=== PATIENT | female | born 1985 | race Caucasian/White ===

== ENCOUNTER 2017-05-21 18:33 | Emergency (ER) | payer OTHER ==
[~2017-05-21] VITALS: Ht 170.2 cm; Wt 72.6 kg
[~2017-05-21 18:33] MED LIST: MEDROLDOSEPACK PO; TRINESSA1 EACH PO
[2017-05-21 18:50] LABS: URINE BILIRUBIN NEGATIVE (Negative); URINE BLOOD NEGATIVE (Negative); URINE COLOR YELLOW; URINE GLUCOSE-RANDOM* NEGATIVE (Negative); URINE KETONES NEGATIVE (Negative); URINE NITRITE NEGATIVE (Negative); URINE PROTEIN (DIPSTICK) NEGATIVE (Negative); URINE SPECIFIC GRAVITY 1.025 (1.005-1.035); URINE UROBILINOGEN 0.2 E.U./dl (0.2-1.0)
[2017-05-21] MEDS ORDERED: NOHOMEMEDICATIONS (19:16)
[2017-05-21 19:24] LABS: CALCIUM 9.3 mg/dL (8.5-10.1); CREATININE 0.7 mg/dL (0.6-1.0); POTASSIUM 3.8 mmol/L (3.5-5.1)
[2017-05-21 19:25] LABS: ABSOLUTE NEUTROPHILS 3.7 thou/uL (1.4-8.2); BASOPHILS 0.9 % (0.0-2.0); EOSINOPHILS 1.2 % (0.0-3.0); HEMATOCRIT 44.4 % (37.0-47.0); LYMPHOCYTES 37.1 % (24.0-44.0); MCH 29.2 pg (26.0-34.0); MCHC 33.7 g/dL (28.0-37.0); MCV 86.5 fL (80.0-100.0); PLATELET COUNT 288 thou/uL (150-400); POLYS 51.8 % (36.0-66.0); RBC 5.13 mil/uL (4.20-5.00); RDW 13.9 % (10.5-14.5); WBC 7.2 thou/uL (4.0-11.0)
[2017-05-21 19:29] LABS: MANUAL DIFF NO
[2017-05-21 19:30] LABS: ALBUMIN 3.6 g/dL (3.4-5.0); TOTAL PROTEIN 7.1 g/dL (6.4-8.2)
[2017-05-21] MEDS ORDERED: PHENERGAN 25 MG25 M1 PO (20:25)
[2017-05-21] MEDS ORDERED: NORFLEX100 MG PO (20:25)
[2017-05-21] MEDS ORDERED: NAPROSYN500 MG PO (20:25)
[2017-05-21 20:41] VITALS: BP 120/73
[2017-05-22 14:13] LABS: CHLAMYDIA TRACHOMATIS-PCR Negative (Negative); NEISSERIA GONORRHEA-PCR Negative (Negative)
== END 2017-05-21 20:41 | disposition home or self-care (01) ==
LOC: ER 18:33
PROVIDERS: Physician Assistant
DX: R10.2 Pelvic and perineal pain (principal); M54.9 Dorsalgia, unspecified; F17.210 Nicotine dependence, cigarettes, uncomplicated

== ENCOUNTER 2017-07-18 18:53 | Emergency (ER) | payer OTHER ==
[~2017-07-18] VITALS: Ht 170.2 cm; Wt 72.6 kg
--- NOTE | ~2017-07-18 | EKG ---
[address] [facility] [place] [address] ELECTROCARDIOGRAM REPORT Name: TRE ARROYO Room #: DEP Raz#: [id number] Admission: 07/18/17 Attend Phys: Discharge: 07/18/17 Date of : 85 Report #: [id number] THIS REPORT FOR: //name// [facility] ED Test Date: 2017-07-18 Test Time: 19:49:32 Pat Name: TRE ARROYO Department: Room: Gender: F Instrument Calibrator: RANDOLPH : 1985 Requested By: Luisa Liao Order Number: [id number] MD: Zeke Plata Measurements Intervals [place] Rate: 61 P: 42 IA: 117 QRS: 61 QRSD: 85 T: 68 QT: 396 QTc: 399 Interpretive Statements Sinus rhythm Borderline short IA interval No previous ECG available for comparison Electronically Signed On 07-19-2017 8:41:08 BLENDING COORDINATOR by Zeke Plata [email or web address] <ELECTRONICALLY SIGNED> By: Zeke Plata MD, [facility] 07/19/17 0841 1949 48 Zeke Plata MD, FACC /EPI
[~2017-07-18 18:53] MED LIST changes: +NAPROSYN500 MG PO; +NOHOMEMEDICATIONS; +NORFLEX100 MG PO; +PHENERGAN 25 MG25 M1 PO
[2017-07-18 19:44] LABS: ABSOLUTE NEUTROPHILS 6.6 thou/uL (1.4-8.2); BASOPHILS 0.6 % (0.0-2.0); EOSINOPHILS 2.1 % (0.0-3.0); HEMATOCRIT 43.7 % (37.0-47.0); HEMOGLOBIN 14.5 gm/dL (12.0-15.0); LYMPHOCYTES 30.6 % (24.0-44.0); MCH 29.4 pg (26.0-34.0); MCHC 33.2 g/dL (28.0-37.0); MCV 88.5 fL (80.0-100.0); MONOCYTES 9.4 % (1.0-8.0); PLATELET COUNT 304 thou/uL (150-400); POLYS 57.3 % (36.0-66.0); RBC 4.94 mil/uL (4.20-5.00); RDW 13.9 % (10.5-14.5); WBC 11.5 thou/uL (4.0-11.0)
[2017-07-18 19:52] LABS: CALCIUM 8.7 mg/dL (8.5-10.1); CREATININE 0.6 mg/dL (0.6-1.0); POTASSIUM 4.3 mmol/L (3.5-5.1)
[2017-07-18 19:58] LABS: ALBUMIN 3.5 g/dL (3.4-5.0); TOTAL BILIRUBIN 1.1 mg/dL (<0.1-1.0); TOTAL PROTEIN 6.7 g/dL (6.4-8.2)
[2017-07-18 21:19] LABS: URINE BILIRUBIN NEGATIVE (Negative); URINE BLOOD NEGATIVE (Negative); URINE CLARITY CLEAR; URINE COLOR YELLOW; URINE GLUCOSE-RANDOM* NEGATIVE (Negative); URINE KETONES NEGATIVE (Negative); URINE LEUKOCYTES TRACE (Negative); URINE NITRITE NEGATIVE (Negative); URINE PROTEIN (DIPSTICK) NEGATIVE (Negative); URINE SPECIFIC GRAVITY 1.015 (1.005-1.035); URINE UROBILINOGEN 0.2 E.U./dl (0.2-1.0)
== END 2017-07-18 21:55 | disposition home or self-care (01) ==
LOC: ER 18:53
PROVIDERS: Physician Assistant
DX: R55 Syncope and collapse (principal); R53.1 Weakness; F17.210 Nicotine dependence, cigarettes, uncomplicated